=== PATIENT | female | born 1965 | race Caucasian/White ===

== ENCOUNTER 2019-11-16 12:15 | Outpatient (CLI) | payer MEDICARE, MEDICAID, SELFPAY ==
--- NOTE | ~2019-11-16 | DEXA_ITS ---
BMD(1) Young-Adult(2) Age-Matched(3) Region (g/cm2) T-score Z-score WHO Classification L1 1.004 -1.1 -0.3 Osteopenia L2 0.949 -2.2 -1.3 Osteopenia L3 0.962 -2.0 -1.2 Osteopenia L4 0.839 -3.0 -2.1 Osteoporosis L1-L4 0.934 -2.1 -1.3 Osteopenia Trend: L1-L4 Change vs Change vs Measured Age BMD(1) Baseline Previous Date [age]) (g/cm2) (%) (%) 11/16/2019 [age] 0[age]934 baseline - 1 - Statistically 68% of repeat scans fall within 1SD (+- 0.010 g/cm2 for AP Spine L1-L4) 2 - [place] (Combined [place]ANES (ages 20-30) / [place] (ages 20-40)) AP Spine Reference Population (v112) 3 - Matched for Age, Weight (females 25-100 kg), Ethnic 11 - World Health Organization - Definition of Osteoporosis and Osteopenia for Women: Normal = T-score at or above -1.0 SD; Osteopenia = T-score between -1.0 and -2.5 SD; Osteoporosis = T-score at or below -2.5 SD; (WHO definitions only apply when a young healthy Women reference database is used to determine T-scores.) Printed: 11/16/2019 1:01:49 PM (13.60)76:3.00:50.00:12.0 0.00:11.10 0.60x1.05 21.1:%Fat=36.5% 0.00:0.00 0.00:0.00 Filename: [id number] Scan Mode: Standard;OneScan 37.0 [employer] [id number] BMD(1) Young-Adult(2,7) Age-Matched(3) Region (g/cm2) T-score Z-score WHO Classification Neck Left 0.680 -2.6 -1.6 Osteoporosis Right 0.766 -2.0 -0.9 Osteopenia Mean 0.723 -2.3 -1.2 Osteopenia Difference 0.087 0.6 0.6 - Total Left 0.708 -2.4 -1.7 Osteopenia Right 0.735 -2.2 -1.5 Osteopenia Mean 0.722 -2.3 -1.6 Osteopenia Difference 0.027 0.2 0.2 - Hip Taft Length Comparison (mm) (Right = 101.4 mm) (Mean = 104.3 mm) (Left = 101.5 mm) Trend: Total Mean Change vs Change vs Measured Age BMD(1) Baseline Previous Date [age]) (g/cm2) (%) (%) 11/16/2019 54.8 0[age]722 baseline - 1 - Statistically 68% of repeat scans fall within 1SD (+- 0.010 g/cm2 for DualFemur Total) 2 - [place] (Combined NHANES (ages 20-30) / [place] (ages 20-40)) Femur Reference Population (v112) 3 - Matched for Age, Weight (females 25-100 kg), Ethnic 7 - DualFemur Total T-score difference is 0.2. Asymmetry is None. 11 - World Health Organization - Definition of Osteoporosis and Osteopenia for Women: Normal = T-score at or above -1.0 SD; Osteopenia = T-score between -1.0 and -2.5 SD; Osteoporosis = T-score at or below -2.5 SD; (WHO definitions only apply when a young healthy Women reference database is used to determine T-scores.) Printed: 11/16/2019 1:01:49 PM (13.60); Filename: [id number]; Right Femur; 17.9:%Fat=39.0%; Neck Angle (deg)= 62; Scan Mode: Standard 37.0 uGy; Left Femur; 18.4:%Fat=37.3%; Neck Angle (deg)= 62; Scan Mode: Standard 37.0 uGy [employer] [id number] Dear Yvette Bautista, Your patient Kelsey Abraham completed a BMD test on 11/16/2019 using the [employer] DXA System (analysis version: 13.60) manufactured by [employer]. The following summarizes the results of our evaluation. PATIENT BIOGRAPHICAL: Name: Kelsey Abraham Date: 1965 Height: 63.0 in. Gender: Female
== END 2019-11-16 12:16 | disposition home or self-care (01) ==
LOC: CHSIMG 12:19
PROVIDERS: PCP Family Medicine
DX: M81.0 Age-related osteoporosis without current pathological fracture (principal)
CPT/HCPCS: 77080

== ENCOUNTER 2021-11-04 17:21 | Outpatient (CLI) | payer MEDICARE, SELFPAY ==
[2021-11-04 18:03] LABS: SARS-CoV-2 Ag Negative (Negative)
== END 2021-11-04 17:22 | disposition home or self-care (01) ==
LOC: CHSLAB 17:24
PROVIDERS: PCP Family Medicine; Visit Provider Nurse Practitioner Family
DX: Z20.822 Contact with and (suspected) exposure to COVID-19 (principal)
CPT/HCPCS: 87426; C9803

== ENCOUNTER 2021-11-09 08:57 | Outpatient (CLI) | payer MEDICARE, SELFPAY ==
[2021-11-09 09:31] LABS: SARS-CoV-2 Ag Negative (Negative)
== END 2021-11-09 08:58 | disposition home or self-care (01) ==
LOC: CHSLAB 09:00
PROVIDERS: PCP Family Medicine; Visit Provider Family Medicine
DX: Z20.822 Contact with and (suspected) exposure to COVID-19 (principal)
CPT/HCPCS: 87426; C9803